=== PATIENT | female | born 1970 | race Native Hawaiian/Other Pacific Islander ===

== ENCOUNTER 2018-06-29 21:18 | Inpatient (IN) | payer OTHER, SELFPAY ==
--- NOTE | 2018-06-29 21:39 | Emergency Department Report ---
ED General Adult HPI - General Chief complaint: Hypoglycemia Stated complaint: UNRESPONSIVE Time Seen by Provider: 06/29/18 21:34 Source: family, EMS Mode of arrival: Stretcher Limitations: Altered Mental Status - History of Present Illness Initial comments: Patient is a 47 years old female with history of type 2 diabetes on glipizide and metformin. Patient brought to the emergency room. EMS with altered mental status that it started this evening. EMS stated that patient initial blood glucose was 41. Patient given dextrose by EMS with no response. Upon arrival to the ER patient is obtunded with no response to voice or painful stimuli. Blood glucose was less than 24. I placed an external jugular vein access and patient given 2 on both D50 and patient immediately start working up and asking where she is moving all extremities. Patient is started on D 10 at 150 mL per hour. -: This evening Severity scale (0 -10): 0 - Related Data Allergies Allergy/AdvReac Type Severity Reaction Status Date / Time No Known Allergies Allergy Unverified 06/26/18 11:19 ED Review of Systems ROS: Stated complaint: UNRESPONSIVE Other details as noted in HPI Comment: All other systems reviewed and negative Respiratory: denies: cough, orthopnea, shortness of breath, SOB with exertion, SOB at rest, wheezing Cardiovascular: denies: chest pain, palpitations Gastrointestinal: denies: abdominal pain, nausea, vomiting Musculoskeletal: denies: back pain Neurological: denies: headache, weakness, numbness, paresthesias, confusion, abnormal gait ED Past Medical Hx - Past Medical History Previous Medical History?: Yes Hx Hypertension: Yes Hx Diabetes: Yes (non-insulin dependent) Hx Renal Disease: Yes (Dr. Linares) Additional medical history: hyperlipidemia - Surgical History Past Surgical History?: Yes Hx Cholecystectomy: Yes Additional Surgical History: tubal ligation - Social History Smoking Status: Never Smoker Substance Use Type: Alcohol, Prescribed ED Physical Exam - General Limitations: Altered Mental Status General appearance: obtunded - Head Head exam: Present: atraumatic, normocephalic, normal inspection - Eye Eye exam: Present: normal appearance, PERRL - ENT ENT exam: Present: normal exam, normal orophraynx - Neck Neck exam: Present: normal inspection, full ROM. Absent: tenderness, meningismus, lymphadenopathy, thyromegaly - Respiratory Respiratory exam: Present: normal lung sounds bilaterally - Cardiovascular Cardiovascular Exam: Present: regular rate, normal rhythm, normal heart sounds - GI/Abdominal GI/Abdominal exam: Present: soft, normal bowel sounds. Absent: distended, tenderness, guarding, rebound, rigid, organomegaly, mass, bruit, pulsatile mass - Extremities Exam Extremities exam: Present: normal inspection, full ROM, normal capillary refill. Absent: pedal edema, calf tenderness - Back Exam Back exam: Present: normal inspection, full ROM. Absent: tenderness, CVA tenderness (R), CVA tenderness (L), muscle spasm, paraspinal tenderness, vertebral tenderness - Neurological Exam Neurological exam: Present: altered - Skin Skin exam: Present: warm, intact, normal color ED Course Vital Signs 06/29/18 06/29/18 21:25 21:41 Temperature 94.4 F L Pulse Rate 98 H Respiratory 13 Rate Blood Pressure 176/100 O2 Sat by Pulse 100 Oximetry - Reevaluation(s) Reevaluation #1: 06/29/18 22:05 Patient is now alert, oriented 3 and talking to her family in no acute distress. I order a meal tray for her. ED Medical Decision Making - Lab Data Result diagrams: 06/29/18 21:52 06/29/18 21:52 - Radiology Data Radiology results: report reviewed Chest x-ray is unremarkable. - Medical Decision Making Patient is a 47 years old female with history of type 2 diabetes on glipizide and metformin. Patient brought to the emergency room. EMS with altered mental status that it started this evening. EMS stated that patient initial blood glucose was 41. Patient given dextrose by EMS with no response. Upon arrival to the ER patient is obtunded with no response to voice or painful stimuli. Blood glucose was less than 24. I placed an external jugular vein access and patient given 2 on both D50 and patient immediately start working up and asking where she is moving all extremities. Patient started on D 10 at 150 mL per hour. Patient improved significantly. Meal tray served. Patient continued on D10. I discussed the patient is Dr. Christine, she agreed to admit the patient to medical service. Critical Care Time: Yes Critical care time in (mins) excluding proc time.: 30 Critical care attestation.: If time is entered above; I have spent that time in minutes in the direct care of this critically ill patient, excluding procedure time. ED Disposition Clinical Impression: Hypoglycemia due to type 2 diabetes mellitus, Altered mental status Disposition: DC-09 OP ADMIT IP TO THIS HOSP Is pt being admited?: Yes Condition: Stable Instructions: Diabetes Mellitus Type 2 in Adults (ED)
[2018-06-29] MEDS ORDERED: D10W 1,000 ML IV SCH (22:00)
[2018-06-29 22:05] LABS: Basophils # (Auto) 0.1 K/mm3 (0.0-0.1); Basophils % (Auto) 0.4 % (0.0-1.8); Eosinophils # (Auto) 0.1 K/mm3 (0.0-0.4); Hematocrit 28.2 % (30.3-42.9); Hemoglobin 9.4 gm/dl (10.1-14.3); Lymphocytes # (Auto) 1.2 K/mm3 (1.2-5.4); Lymphocytes % (Auto) 8.5 % (13.4-35.0); Mean Corpuscular HGB Conc 33 % (30-34); Mean Corpuscular Volume 95 fl (79-97); Monocytes % (Auto) 6.8 % (0.0-7.3); Red Blood Count 2.96 M/mm3 (3.65-5.03)
[2018-06-29 22:18] LABS: BUN/Creatinine Ratio 23; Blood Urea Nitrogen 25 mg/dL (7-17); Calcium 9.1 mg/dL (8.4-10.2); Hemolysis Index 197
[2018-06-29 22:19] LABS: Platelet Count 372 K/mm3 (140-440)
--- NOTE | 2018-06-29 23:03 | XRay Report ---
PROCEDURE: XR CHEST 1V AP TECHNIQUE: Chest radiograph single view. HISTORY: Lightheadedness/Dizziness COMPARISONS: None . FINDINGS: Heart: Normal. Mediastinum/Vessels: Normal. Lungs/Pleural space: The lungs are clear. No infiltrate or effusion. Pneumothorax and there is event ration of the right hemidiaphragm.. Bony thorax: No acute osseous abnormality. Life support devices: None. IMPRESSION: No acute cardiopulmonary abnormality. This document is electronically signed by Dorinda Adames DO., Jun 29 2018 11:01:48 PM ET
[2018-06-29] MEDS ORDERED: D5NS 1,000 ML IV SCH (23:45)
[2018-06-29] MEDS ORDERED: SODIUM CHLORIDE FLUSH SYRINGE 10 ML IV PRN (23:58)
[2018-06-29] MEDS ORDERED: ZOFRAN IV PRN (23:58)
[2018-06-30] MEDS ORDERED: D50W (25GM) Syringe IV PRN (00:02)
[2018-06-30] MEDS ORDERED: APRESOLINE IV PRN (00:05)
[2018-06-30] MEDS ORDERED: D5NS 1,000 ML IV ONE (00:44)
--- NOTE | 2018-06-30 01:16 | History and Physical Report ---
<RAIZA HERNANDEZ - Last Filed: 06/30/18 01:25> History of Present Illness Date of examination: 06/29/18 Date of admission: 06/29/18 23:58 Chief complaint: Hypoglycemia History of present illness: 47-year-old adult female with history of hypertension and DM2 who presents to [facility] ED via EMS with complaints of unresponsiveness secondary to hypoglycemia. Patient does not speak [place] and HPI is provided by patient's daughter. According to patient's daughter, patient became unresponsive and displayed labored breathing earlier today. She checked her mother's blood sugar using their home glucometer and it was 41, so she decided to call EMS. Upon EMS arrival patient remained unresponsive. Upon arrival to the ED pt was found to be obtunded with no response to voice or painful stimuli, and BG <24. She was given D50 and immediately started to become responsive and ask him questions. Denies pain, diaphoresis, nausea, vomiting, or diarrhea. Review of chart shows patient was seen in the ED on 06/26/18 with complaints of hypoglycemia. She was discharged and advised to follow up with PCP in 3-5 days. Past History Past Medical History: diabetes, hypertension Past Surgical History: cholecystectomy, Other (tubal ligation) Social history: , lives with family Family history: no significant family history Medications and Allergies Allergies Allergy/AdvReac Type Severity Reaction Status Date / Time No Known Allergies Allergy Unverified 06/26/18 11:19 Home Medications Medication Instructions Recorded Confirmed Last Taken Type Levothyroxine [Synthroid] 25 mcg PO QAM 06/29/18 06/29/18 Unknown History Lisinopril [Zestril] 20 mg PO QDAY 06/29/18 06/29/18 Unknown History Pravastatin [Pravachol] 20 mg PO QHS 06/29/18 06/29/18 Unknown History glipiZIDE [Glucotrol] 5 mg PO QDAY 06/29/18 06/29/18 Unknown History metFORMIN [Glucophage] 1,000 mg PO DAILY 06/29/18 06/29/18 Unknown History Gemfibrozil [Lopid] 600 mg PO BID 06/30/18 06/30/18 06/28/18 22:00 History Active Meds: Active Medications Acetaminophen (Tylenol) 650 mg PO Q4H PRN PRN Reason: Pain MILD(1-3)/Fever >100.5/ANNA Dextrose (D50w (25gm) Syringe) 50 ml IV PRN PRN PRN Reason: Hypoglycemia Heparin Sodium (Porcine) (Heparin) 5,000 unit SUB-Q BID [facility] Hydralazine HCl (Apresoline) 10 mg IV Q4H PRN PRN Reason: Blood Pressure Dextrose/Sodium Chloride (D5ns) 1,000 mls @ 100 mls/hr IV DIRECT [facility] Last Admin: 06/30/18 00:43 Dose: 100 mls/hr Documented by: Insulin Human Lispro (Humalog) 0 unit SUB-Q ACHS [facility]; Protocol Levothyroxine Sodium (Synthroid) 25 mcg PO QAM@0600 [facility] Lisinopril (Zestril) 20 mg PO QDAY [facility] Metformin HCl (Glucophage) 1,000 mg PO QDDIAB [facility] Ondansetron HCl (Zofran) 4 mg IV Q8H PRN PRN Reason: Nausea And Vomiting Pravastatin Sodium (Pravachol) 20 mg PO QHS [facility] Sodium Chloride (Sodium Chloride Flush Syringe 10 Ml) 10 ml IV BID [facility] Sodium Chloride (Sodium Chloride Flush Syringe 10 Ml) 10 ml IV PRN PRN PRN Reason: LINE FLUSH Review of Systems All systems: negative (reviewed and no additional remarkable complaints except as noted below) Musculoskeletal: other (right arm discomfort) Neurological: syncope, change in mentation Endocrine: low blood sugars Exam - Physical Exam Narrative exam: Physical exam General appearance: Present: No acute distress, obese, alert and oriented, [place] m[place]-speaking adult female - EENT Eyes: Present: PERRL, EOM intact ENT: hearing intact, normal dentition - Neck Neck: Present: supple, normal ROM - Respiratory Respiratory effort: Non-labored Respiratory: Clear throughout - Cardiovascular Heart rate: 94 (bpm) Rhythm: regular, sinus rhythm Heart Sounds: Present: S1 & S2. Absent: rub, click - Extremities Extremities: no ischemia, pulses intact, - Peripheral Assessment Peripheral Pulses: within normal limits - Abdominal General gastrointestinal: Obese, soft, non-tender, normal bowel sounds - Integumentary Integumentary: Present: warm, dry - Musculoskeletal Musculoskeletal: Able move all extremities - Psychiatric Psychiatric: cooperative - Constitutional Vitals: Temp Pulse Resp BP Pulse Ox 97.8 F 103 H 20 172/57 99 06/29/18 22:00 06/30/18 01:02 06/30/18 01:02 06/30/18 01:02 06/30/18 01:02 Results - Labs CBC & Chem 7: 06/29/18 21:52 06/29/18 21:52 Labs: Laboratory Last Values WBC 14.1 K/mm3 (4.5-11.0) H 06/29/18 21:52 RBC 2.96 M/mm3 (3.65-5.03) L 06/29/18 21:52 Hgb 9.4 gm/dl (10.1-14.3) L 06/29/18 21:52 Hct 28.2 % (30.3-42.9) L 06/29/18 21:52 MCV 95 fl (79-97) 06/29/18 21:52 MCH 32 pg (28-32) 06/29/18 21:52 MCHC 33 % (30-34) 06/29/18 21:52 RDW 16.0 % (13.2-15.2) H 06/29/18 21:52 Plt Count 372 K/mm3 (140-440) 06/29/18 21:52 Lymph % (Auto) 8.5 % (13.4-35.0) L 06/29/18 21:52 [place] % (Auto) 6.8 % (0.0-7.3) 06/29/18 21:52 Eos % (Auto) 1.0 % (0.0-4.3) 06/29/18 21:52 Baso % (Auto) 0.4 % (0.0-1.8) 06/29/18 21:52 Lymph # 1.2 K/mm3 (1.2-5.4) 06/29/18 21:52 [place] # 1.0 K/mm3 (0.0-0.8) H 06/29/18 21:52 Eos # 0.1 K/mm3 (0.0-0.4) 06/29/18 21:52 Baso # 0.1 K/mm3 (0.0-0.1) 06/29/18 21:52 Seg Neutrophils % 83.3 % (40.0-70.0) H 06/29/18 21:52 Seg Neutrophils # 11.7 K/mm3 (1.8-7.7) H 06/29/18 21:52 Sodium 127 mmol/L (137-145) L D 06/29/18 21:52 Potassium 4.8 mmol/L (3.6-5.0) 06/29/18 21:52 Chloride 95.4 mmol/L (98-107) L 06/29/18 21:52 Carbon Dioxide 18 mmol/L (22-30) L 06/29/18 21:52 18 mmol/L 06/29/18 21:52 BUN 25 mg/dL (7-17) H 06/29/18 21:52 1.1 mg/dL (0.7-1.2) 06/29/18 21:52 Estimated GFR 54 ml/min 06/29/18 21:52 23 % 06/29/18 21:52 Glucose 209 mg/dL (65-100) H 06/29/18 21:52 Calcium 9.1 mg/dL (8.4-10.2) 06/29/18 21:52 < 0.010 ng/mL (0.00-0.029) 06/29/18 21:52 - Imaging and Cardiology EKG: image reviewed (sinus rhythm 94 bpm) Chest x-ray: report reviewed (unrevealing for acute cardiopulmonary abnormalities), image reviewed Assessment and Plan Assessment and plan: 47-year-old adult female with history of hypertension and DM2 who presents to [facility] ED via EMS with complaints of unresponsiveness secondary to hypoglycemia. Upon EMS arrival patient remained unresponsive. Upon arrival to the ED pt was found to be obtunded with no response to voice or painful stimuli, and BG <24. She was given D50 and immediately started to become responsive and ask him questions. She was then placed on D10W at 150ml/hr. Patient was found to be hyponatremic with sodium of 127. She will be admitted to medical floor. Hyponatremia Hypoglycemia DM2 Hypertensive urgency Hypertension Plan: Continue supportive care Start D5 NS @100ml/hr Discontinue D10W POC BG monitoring HgbA1C pending Resume home metformin 1,000mg daily Hold glipizide SSI coverage Monitor BP Resume lisinopril 20 mg daily IV hydralazine when necessary DVT PPX Heparin and SCD's Advance Directives: No VTE prophylaxis?: Chemical Plan of care discussed with patient/family: Yes <EZIMORA,AYALA Brittany - Last Filed: 06/30/18 21:55> History of Present Illness Date of admission: 06/29/18 23:58 Medications and Allergies Active Meds: Active Medications Acetaminophen (Tylenol) 650 mg PO Q4H PRN PRN Reason: Pain MILD(1-3)/Fever >100.5/ANNA Last Admin: 06/30/18 13:33 Dose: 650 mg Documented by: Dextrose (D50w (25gm) Syringe) 50 ml IV PRN PRN PRN Reason: Hypoglycemia Heparin Sodium (Porcine) (Heparin) 5,000 unit SUB-Q BID [facility] Last Admin: 06/30/18 09:24 Dose: 5,000 unit Documented by: Hydralazine HCl (Apresoline) 10 mg IV Q4H PRN PRN Reason: Blood Pressure Last Admin: 06/30/18 04:30 Dose: 10 mg Documented by: Ceftriaxone Sodium (Rocephin/Ns 1 Gm/50 Ml) 1 gm in 50 mls @ 100 mls/hr IV Q24HR [facility]; Protocol Last Admin: 06/30/18 13:34 Dose: 100 mls/hr Documented by: Insulin Human Lispro (Humalog) 0 unit SUB-Q ACHS [facility]; Protocol Last Admin: 06/30/18 16:29 Dose: Not Given Documented by: Levothyroxine Sodium (Synthroid) 25 mcg PO QAM@0600 [facility] Last Admin: 06/30/18 06:35 Dose: 25 mcg Documented by: Lisinopril (Zestril) 20 mg PO QDAY [facility] Last Admin: 06/30/18 09:25 Dose: 20 mg Documented by: Metformin HCl (Glucophage) 1,000 mg PO QDDIAB [facility] Last Admin: 06/30/18 09:24 Dose: 1,000 mg Documented by: Ondansetron HCl (Zofran) 4 mg IV Q8H PRN PRN Reason: Nausea And Vomiting Oxycodone/Acetaminophen (Percocet 5/325) 1 tab PO Q6H PRN PRN Reason: Pain, Moderate (4-6) Last Admin: 06/30/18 20:33 Dose: 1 tab Documented by: Pravastatin Sodium (Pravachol) 20 mg PO QHS [facility] Sodium Chloride (Sodium Chloride Flush Syringe 10 Ml) 10 ml IV BID [facility] Last Admin: 06/30/18 09:25 Dose: 10 ml Documented by: Sodium Chloride (Sodium Chloride Flush Syringe 10 Ml) 10 ml IV PRN PRN PRN Reason: LINE FLUSH Exam - Constitutional Vitals: Temp Pulse Resp BP Pulse Ox 98.0 F 96 H 18 136/62 98 06/30/18 17:32 06/30/18 17:32 06/30/18 17:32 06/30/18 17:32 06/30/18 17:32 Results - Labs CBC & Chem 7: 06/29/18 21:52 06/30/18 07:37 Labs: Laboratory Last Values WBC 14.1 K/mm3 (4.5-11.0) H 06/29/18 21:52 RBC 2.96 M/mm3 (3.65-5.03) L 06/29/18 21:52 Hgb 9.4 gm/dl (10.1-14.3) L 06/29/18 21:52 Hct 28.2 % (30.3-42.9) L 06/29/18 21:52 MCV 95 fl (79-97) 06/29/18 21:52 MCH 32 pg (28-32) 06/29/18 21:52 MCHC 33 % (30-34) 06/29/18 21:52 RDW 16.0 % (13.2-15.2) H 06/29/18 21:52 Plt Count 372 K/mm3 (140-440) 06/29/18 21:52 Lymph % (Auto) 8.5 % (13.4-35.0) L 06/29/18 21:52 [place] % (Auto) 6.8 % (0.0-7.3) 06/29/18 21:52 Eos % (Auto) 1.0 % (0.0-4.3) 06/29/18 21:52 Baso % (Auto) 0.4 % (0.0-1.8) 06/29/18 21:52 Lymph # 1.2 K/mm3 (1.2-5.4) 06/29/18 21:52 [place] # 1.0 K/mm3 (0.0-0.8) H 06/29/18 21:52 Eos # 0.1 K/mm3 (0.0-0.4) 06/29/18 21:52 Baso # 0.1 K/mm3 (0.0-0.1) 06/29/18 21:52 Seg Neutrophils % 83.3 % (40.0-70.0) H 06/29/18 21:52 Seg Neutrophils # 11.7 K/mm3 (1.8-7.7) H 06/29/18 21:52 Sodium 129 mmol/L (137-145) L 06/30/18 07:37 Potassium 5.2 mmol/L (3.6-5.0) H 06/30/18 07:37 Chloride 97.8 mmol/L (98-107) L 06/30/18 07:37 Carbon Dioxide 17 mmol/L (22-30) L 06/30/18 07:37 19 mmol/L 06/30/18 07:37 BUN 22 mg/dL (7-17) H 06/30/18 07:37 1.0 mg/dL (0.7-1.2) 06/30/18 07:37 Estimated GFR 60 ml/min 06/30/18 07:37 22 % 06/30/18 07:37 Glucose 229 mg/dL (65-100) H 06/30/18 07:37 POC Glucose 101 (70-105) 06/30/18 20:54 5.5 % (4-6) 06/30/18 00:28 Calcium 8.9 mg/dL (8.4-10.2) 06/30/18 07:37 < 0.010 ng/mL (0.00-0.029) 06/29/18 21:52 Yellow (Yellow) 06/29/18 06:00 Slightly-cloudy (Clear) 06/29/18 06:00 5.0 (5.0-7.0) 06/29/18 06:00 Ur Specific [place] 1.011 (1.003-1.030) 06/29/18 06:00 <15 mg/dl mg/dL (Negative) 06/29/18 06:00 Neg mg/dL (Negative) 06/29/18 06:00 Neg mg/dL (Negative) 06/29/18 06:00 Sm (Negative) 06/29/18 06:00 Neg (Negative) 06/29/18 06:00 Neg (Negative) 06/29/18 06:00 < 2.0 mg/dL (<2.0) 06/29/18 06:00 Ur Leukocyte Esterase Sm (Negative) 06/29/18 06:00 51.0 /HPF (0.0-6.0) H 06/29/18 06:00 3.0 /HPF (0.0-6.0) 06/29/18 06:00 U Epithel Cells (Auto) 2.0 /HPF (0-13.0) 06/29/18 06:00 4+ /HPF (Negative) 06/29/18 06:00 Assessment and Plan Assessment and plan: I personally discussed the patient with the PATHOLOGY ASSISTANT-C, I agree with the above assessment and plan
[2018-06-30] MEDS ORDERED: D50W (25GM) Syringe IV ONE (03:34)
[2018-06-30] MEDS: TYLENOL PO PRN ×2 (04:23→13:33)
[2018-06-30] MEDS: SYNTHROID PO SCH (06:35)
[2018-06-30 06:56] LABS: Bacteria,Urine 4+ /HPF (Negative); Bilirubin,Urine NEG (Negative); Blood,Urine SM (Negative); Color,Urine Yellow (Yellow); Protein,Urine <15 mg/dL mg/dL (Negative); Urobilinogen,Urine < 2.0 mg/dL (<2.0)
[2018-06-30 08:12] LABS: Calcium 8.9 mg/dL (8.4-10.2)
[2018-06-30] MEDS: HEPARIN SUB-Q SCH ×2 (09:24→22:10)
[2018-06-30] MEDS: GLUCOPHAGE PO SCH (09:24)
[2018-06-30] MEDS: HumaLOG SUB-Q SCH ×4 (09:24→22:10)
[2018-06-30] MEDS: ZESTRIL PO SCH (09:25)
[2018-06-30] MEDS: SODIUM CHLORIDE FLUSH SYRINGE 10 ML IV SCH ×2 (09:25→22:10)
[2018-06-30] MEDS ORDERED: AFLURIA QUAD 2018-2019 SYRINGE IM ONE (12:00)
[2018-06-30] MEDS: ROCEPHIN/NS 1 GM/50 ML 1 GM/50 ML BAG IV SCH (13:34)
[2018-06-30] MEDS: PERCOCET 5/325 PO PRN ×2 (14:50→20:33)
[2018-06-30] MEDS ORDERED: KIONEX PO ONE (14:59)
--- NOTE | 2018-06-30 15:07 | Progress Note ---
Assessment and Plan Assessment and plan: 47-year-old female was admitted for altered mental status secondary to hypoglycemia Acute metabolic encephalopathy secondary to hypoglycemia - Patient was treated according to hypoglycemic protocol - Patient's blood sugar is high now - I discontinued the glipizide, and continue insulin and metformin Hypertension - Continue home medications, stop IV fluid Hyponatremia - Sodium is gradually increasing, currently asymptomatic Diabetes mellitus - Continue sliding scale insulin, metformin - held glipizide - Globin A1c is 5.5 Hypothyroidism - Continue levothyroxine DVT prophylaxis - Heparin History Interval history: Patient was seen and evaluated this morning, patient doesn't speak [place] and patient preferred her daughter interpreted for her. Patient was alert and oriented, she is complaining left arm pain at the site where EMS stick. Hospitalist Physical - Physical exam Narrative exam: Not in cardiopulmonary distress. The patient is morbidly obese. Vital signs as documented. Head exam is unremarkable. No scleral icterus . Neck is without jugular venous distension, thyromegaly, or carotid bruits. Lungs are clear to auscultation. Cardiac exam reveals regular rate and Rhythm. Abdominal exam reveals normal bowel sounds. Extremities are nonedematous. 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 No focal weakness. - Constitutional Vitals: Temp Pulse Resp BP Pulse Ox 99.0 F 106 H 18 156/70 96 06/30/18 12:28 06/30/18 12:28 06/30/18 12:28 06/30/18 12:28 06/30/18 12:28 Results - Labs CBC & Chem 7: 06/29/18 21:52 06/30/18 07:37 Labs: Laboratory Last Values WBC 14.1 K/mm3 (4.5-11.0) H 06/29/18 21:52 RBC 2.96 M/mm3 (3.65-5.03) L 06/29/18 21:52 Hgb 9.4 gm/dl (10.1-14.3) L 06/29/18 21:52 Hct 28.2 % (30.3-42.9) L 06/29/18 21:52 MCV 95 fl (79-97) 06/29/18 21:52 MCH 32 pg (28-32) 06/29/18 21:52 MCHC 33 % (30-34) 06/29/18 21:52 RDW 16.0 % (13.2-15.2) H 06/29/18 21:52 Plt Count 372 K/mm3 (140-440) 06/29/18 21:52 Lymph % (Auto) 8.5 % (13.4-35.0) L 06/29/18 21:52 [place] % (Auto) 6.8 % (0.0-7.3) 06/29/18 21:52 Eos % (Auto) 1.0 % (0.0-4.3) 06/29/18 21:52 Baso % (Auto) 0.4 % (0.0-1.8) 06/29/18 21:52 Lymph # 1.2 K/mm3 (1.2-5.4) 06/29/18 21:52 [place] # 1.0 K/mm3 (0.0-0.8) H 06/29/18 21:52 Eos # 0.1 K/mm3 (0.0-0.4) 06/29/18 21:52 Baso # 0.1 K/mm3 (0.0-0.1) 06/29/18 21:52 Seg Neutrophils % 83.3 % (40.0-70.0) H 06/29/18 21:52 Seg Neutrophils # 11.7 K/mm3 (1.8-7.7) H 06/29/18 21:52 Sodium 129 mmol/L (137-145) L 06/30/18 07:37 Potassium 5.2 mmol/L (3.6-5.0) H 06/30/18 07:37 Chloride 97.8 mmol/L (98-107) L 06/30/18 07:37 Carbon Dioxide 17 mmol/L (22-30) L 06/30/18 07:37 19 mmol/L 06/30/18 07:37 BUN 22 mg/dL (7-17) H 06/30/18 07:37 1.0 mg/dL (0.7-1.2) 06/30/18 07:37 Estimated GFR 60 ml/min 06/30/18 07:37 22 % 06/30/18 07:37 Glucose 229 mg/dL (65-100) H 06/30/18 07:37 POC Glucose 213 (70-105) H 06/30/18 08:04 5.5 % (4-6) 06/30/18 00:28 Calcium 8.9 mg/dL (8.4-10.2) 06/30/18 07:37 < 0.010 ng/mL (0.00-0.029) 06/29/18 21:52 Yellow (Yellow) 06/29/18 06:00 Slightly-cloudy (Clear) 06/29/18 06:00 5.0 (5.0-7.0) 06/29/18 06:00 Ur Specific [place] 1.011 (1.003-1.030) 06/29/18 06:00 <15 mg/dl mg/dL (Negative) 06/29/18 06:00 Neg mg/dL (Negative) 06/29/18 06:00 Neg mg/dL (Negative) 06/29/18 06:00 Sm (Negative) 06/29/18 06:00 Neg (Negative) 06/29/18 06:00 Neg (Negative) 06/29/18 06:00 < 2.0 mg/dL (<2.0) 06/29/18 06:00 Ur Leukocyte Esterase Sm (Negative) 06/29/18 06:00 51.0 /HPF (0.0-6.0) H 06/29/18 06:00 3.0 /HPF (0.0-6.0) 06/29/18 06:00 U Epithel Cells (Auto) 2.0 /HPF (0-13.0) 06/29/18 06:00 4+ /HPF (Negative) 06/29/18 06:00 Active Medications - Current Medications Current Medications: Generic Name Dose Route Start Last Admin Trade Name Michaelq PRN Reason Stop Dose Admin Acetaminophen 650 mg 06/29/18 23:58 06/30/18 13:33 Tylenol PO 650 mg Q4H PRN Administration Pain MILD(1-3)/Fever >100.5/ANNA Dextrose 50 ml 06/30/18 00:02 D50w (25gm) Syringe IV PRN PRN Hypoglycemia Heparin Sodium (Porcine) 5,000 unit 06/30/18 10:00 06/30/18 09:24 Heparin SUB-Q 5,000 unit BID [facility] Administration Hydralazine HCl 10 mg 06/30/18 00:05 06/30/18 04:30 Apresoline IV 10 mg Q4H PRN Administration Blood Pressure Ceftriaxone Sodium 1 gm in 50 mls @ 100 mls/hr 06/30/18 11:00 06/30/18 13:34 Rocephin/Ns 1 Gm/50 Ml IV 100 mls/hr Q24HR [facility] Administration Protocol Insulin Human Lispro 0 unit 06/30/18 07:30 06/30/18 13:34 Humalog SUB-Q 1 unit ACHS [facility] Administration Protocol Levothyroxine Sodium 25 mcg 06/30/18 06:00 06/30/18 06:35 Synthroid PO 25 mcg QAM@0600 [facility] Administration Lisinopril 20 mg 06/30/18 10:00 06/30/18 09:25 Zestril PO 20 mg QDAY [facility] Administration Metformin HCl 1,000 mg 06/30/18 08:00 06/30/18 09:24 Glucophage PO 1,000 mg QDDIAB [facility] Administration Ondansetron HCl 4 mg 06/29/18 23:58 Zofran IV Q8H PRN Nausea And Vomiting Oxycodone/Acetaminophen 1 tab 06/30/18 13:38 06/30/18 14:50 Percocet 5/325 PO 1 tab Q6H PRN Administration Pain, Moderate (4-6) Pravastatin Sodium 20 mg 06/30/18 22:00 Pravachol PO QHS [facility] Sodium Chloride 10 ml 06/30/18 10:00 06/30/18 09:25 Sodium Chloride Flush Syringe 10 Ml IV 10 ml BID [facility] Administration Sodium Chloride 10 ml 06/29/18 23:58 Sodium Chloride Flush Syringe 10 Ml IV PRN PRN LINE FLUSH
[2018-06-30] MEDS ORDERED: PRAVACHOL PO SCH (22:00)
[2018-07-01] MEDS: SYNTHROID PO SCH (05:36)
[2018-07-01 08:59] LABS: Basophils # (Auto) 0.1 K/mm3 (0.0-0.1); Basophils % (Auto) 0.6 % (0.0-1.8); Eosinophils # (Auto) 0.1 K/mm3 (0.0-0.4); Eosinophils % (Auto) 0.7 % (0.0-4.3); Hematocrit 27.7 % (30.3-42.9); Hemoglobin 9.3 gm/dl (10.1-14.3); Lymphocytes # (Auto) 1.9 K/mm3 (1.2-5.4); Lymphocytes % (Auto) 14.6 % (13.4-35.0); Mean Corpuscular HGB Conc 34 % (30-34); Mean Corpuscular Volume 93 fl (79-97); Monocytes % (Auto) 7.5 % (0.0-7.3); Platelet Count 456 K/mm3 (140-440); Red Blood Count 2.96 M/mm3 (3.65-5.03); Red Cell Distribution Width 15.5 % (13.2-15.2)
[2018-07-01 09:23] LABS: Calcium 9.1 mg/dL (8.4-10.2)
[2018-07-01] MEDS: HumaLOG SUB-Q SCH ×2 (10:04→13:01)
[2018-07-01] MEDS: ROCEPHIN/NS 1 GM/50 ML 1 GM/50 ML BAG IV SCH (10:04)
[2018-07-01] MEDS: GLUCOPHAGE PO SCH (10:05)
[2018-07-01] MEDS: ZESTRIL PO SCH (10:05)
[2018-07-01] MEDS: HEPARIN SUB-Q SCH (10:06)
[2018-07-01] MEDS: SODIUM CHLORIDE FLUSH SYRINGE 10 ML IV SCH (10:06)
--- NOTE | 2018-07-01 10:31 | Discharge Summary ---
Providers - Providers Date of Admission: 06/29/18 23:58 Attending physician: DARRYL LOCO MD 06/30/18 00:02 Consult to Dietitian/Nutrition [CONS] Routine Physician Instructions: Reason For Exam: Reason for Consult: Diet education [facility] Reason for admission: hypoglycemia, acute metabolic encephalopathy, UTI Condition: Stable Hospital course: 47-year-old adult female with history of hypertension and DM2 who presents to [facility] ED via EMS with complaints of unresponsiveness secondary to hypoglycemia. Patient does not speak Armenian and HPI is provided by patient's daughter. According to patient's daughter, patient became unresponsive and displayed labored breathing earlier today. She checked her mother's blood sugar using their home glucometer and it was 41, so she decided to call EMS. Upon EMS arrival patient remained unresponsive. Upon arrival to the ED pt was found to be obtunded with no response to voice or painful stimuli, and BG <24. She was given D50 and immediately started to become responsive and ask him questions. Patient admitted to the hospital and was treated for hypoglycemia according to hypoglycemia protocol. Patient's blood was systemically high and start on insulin and for metformin. A1c was 5.5. Glipizide was the cause of hy poglycemia and discontinued. Advised to continue on metformin and have follow- up with her primary care physician. Patient has UTI and treated with ceftriaxone and given Ceftin at the time of discharge. Patient is hemodynamically stable at the time of discharge. Disposition: DC-01 TO HOME OR SELFCARE Time spent for discharge: 32 minutes - Discharge Diagnoses (1) Altered mental status Status: Acute Qualifiers: Altered mental status type: transient alteration of awareness Qualified Code(s): R40.4 - Transient alteration of awareness (2) Hypoglycemia due to type 2 diabetes mellitus Status: Acute (3) UTI (urinary tract infection) Status: Acute Core Measure Documentation - Palliative Care Palliative Care/ Comfort Measures: Not Applicable - Core Measures Any of the following diagnoses?: none Exam - Physical Exam Narrative exam: Not in cardiopulmonary distress. The patient is morbidly obese. Vital signs as documented. Head exam is unremarkable. No scleral icterus . Neck is without jugular venous distension, thyromegaly, or carotid bruits. Lungs are clear to auscultation. Cardiac exam reveals regular rate and Rhythm. Abdominal exam reveals normal bowel sounds. Extremities are nonedematous. ELEMENT BURNER: Alert and oriented 3. No focal weakness. - Constitutional Vitals: Temp Pulse Resp BP Pulse Ox 99.0 F 96 H 20 132/58 98 07/01/18 04:25 07/01/18 04:25 07/01/18 04:25 07/01/18 04:25 07/01/18 04:25 Plan Activity: no restrictions Weight Bearing Status: Full Weight Bearing Diet: diabetic Follow up with: ANDRESSA YEE MD [Primary Care Provider] - 3-5 Days Prescriptions: cefUROXime [Ceftin] 250 mg PO Q12H #10 tablet
[2018-07-01 12:38] VITALS: BP 125/65
== END 2018-07-01 16:26 | disposition home or self-care (01) | DRG 637 ==
LOC: ED 21:18 → 3A 23:58
PROVIDERS: ADMIT Internal Medicine; ATTEND Internal Medicine
DX: E11.649 Type 2 diabetes mellitus with hypoglycemia without coma (principal); G93.41 Metabolic encephalopathy; E87.1 Hypo-osmolality and hyponatremia; N39.0 Urinary tract infection, site not specified; I10 Essential (primary) hypertension; I16.0 Hypertensive urgency; E03.9 Hypothyroidism, unspecified; Z90.49 Acquired absence of other specified parts of digestive tract; Z98.51 Tubal ligation status; Z79.899 Other long term (current) drug therapy; Z72.89 Other problems related to lifestyle
CPT/HCPCS: 36415; 71045; 80048; 81001; 82962; 83036; 84484; 85025; 90686; 93005; 93010; G0378; A9270-GY; J0360; J0696; J1644; J1815; J7042